=== PATIENT | male | born 1965 | race African-American/Black ===

== ENCOUNTER 2016-12-23 11:41 | Emergency (ER) | payer OTHER ==
[2016-12-23 12:02] VITALS: BP 158/90; PULSE 105; TEMP 98.3; BMI 35.5
[2016-12-23] MEDS ORDERED: KETOROLAC TROMETHAMINE 60 MG/2 ML VIAL IM ONE (12:26)
[2016-12-23] MEDS ORDERED: KETOROLAC TROMETHAMINE 60 MG/2 ML VIAL ONE (12:30)
--- NOTE | 2016-12-23 12:55 | PDOC ---
History of Present Illness - General Chief Complaint: Pain Stated Complaint: RT KNEE PAIN Time Seen by Provider: 12/23/16 12:09 History Source: Patient - History of Present Illness Occurred: reports: other Severity: Yes: moderate Lower Extremity Pain Location: right: knee Past History - Past Medical History Allergies/Adverse Reactions: Allergies Allergy/AdvReac Type Severity Reaction Status Date / Time No Known Allergies Allergy Verified 12/23/16 12:02 Home Medications: Ambulatory Orders Ibuprofen [Motrin -] 600 mg PO QID #28 tablet 12/23/16 - Suicide/Smoking/Psychosocial Hx Smoking History: Never smoked Hx Alcohol Use: No Drug/Substance Use Hx: No Review of Systems - Review of Systems Constitutional: No: Chills, Fever Musculoskeletal: Yes: Joint Pain, Joint Swelling Integumentary: No: Erythema *Physical Exam - Vital Signs Last Vital Signs Temp Pulse Resp BP Pulse Ox 98.3 F 105 H 20 158/90 100 12/23/16 11:58 12/23/16 11:58 12/23/16 11:58 12/23/16 11:58 12/23/16 11:58 - Physical Exam General Appearance: Yes: Appropriately Dressed. No: Apparent Distress HEENT: positive: Normal Voice Neck: positive: Supple Respiratory/Chest: negative: Respiratory Distress Extremity: positive: Swelling (moderate swelling to R knee diffusely, no red, hot joint, +pain w/ flexion, able to bear weight) ED Treatment Course - Medications Given in the ED: ED Medications Discontinued Medications Generic Name Dose Route Start Last Admin Trade Name Freq PRN Reason Stop Dose Admin Ketorolac Tromethamine 60 mg 12/23/16 12:26 12/23/16 12:33 Toradol Injection - IM 12/23/16 12:27 60 mg ONCE ONE Administration Medical Decision Making - Medical Decision Making 12/23/16 12:52 51 yo M, no sig hx, p/w R knee pain. Pt c/o intermittent R knee for 6 months that is achy in nature, worse with flexion. Pt usually takes [id number] medication, which relieves pain but states pain worse today. Has not seek medical treatment for pain prior to today. No recent trauma. See exam Chronic R knee pain Moderate swelling on exam Possibly arthritic vs other MSK etiology, less likely gout and no e/o infection -Serjio placed -Dc w/ pain control and ortho referral for possible MRI 12/23/16 12:55 *DC/Admit/Observation/Transfer Diagnosis at time of Disposition: Chronic knee pain Qualifiers: Laterality: right Qualified Code(s): M25.561 - Pain in right knee; M25.561 - Pain in right knee; G89.29 - Other chronic pain; G89.29 - Other chronic pain - Discharge Dispostion Disposition: HOME Condition at time of disposition: Good - Prescriptions Prescriptions: Ibuprofen [Motrin -] 600 mg PO QID #28 tablet - Referrals Referrals: Dixon Vickers [Primary Care Provider] - Ronald Temple MD [Staff Physician] - - Patient Instructions Printed Discharge Instructions: DI for Knee Pain Additional Instructions: The cause of your knee pain is unclear at this time. Use Serjio wrap for comfort and take Motrin as needed for pain. Please follow-up with Dr. Temple of orthopedics
== END 2016-12-23 12:53 | disposition home or self-care (01) ==
LOC: JERFT 11:41
PROC: 3E0233Z Introduction of Anti-inflammatory into Muscle, Percutaneous Approach (ICD-10-PCS; principal; 2016-12-23)
DX: M25.561 Pain in right knee (principal); G89.29 Other chronic pain
CPT/HCPCS: 99281-25